=== PATIENT | female | born 2000 | race Caucasian/White ===

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

== ENCOUNTER 2021-11-23 22:03 | Emergency (ER) | payer OTHER ==
[~2021-11-23 22:03] MED LIST: BENTYL10 MG PO; ONDANSETRON ODT4 MG PO
== END 2021-11-23 22:53 | disposition home or self-care (01) ==
LOC: FER 22:03
DX: M25.561 Pain in right knee (principal); W19.XXXA Unspecified fall, initial encounter; Y92.89 Other specified places as the place of occurrence of the external cause; Y99.0 Civilian activity done for income or pay
CPT/HCPCS: 99283